=== PATIENT | female | born 1985 | race Two or more races ===

== ENCOUNTER 2019-01-12 13:41 | Day surgery (SDC) | payer SELFPAY ==
[2019-01-06 11:08] VITALS: BMI 23.8
[~2019-01-12 13:41] MED LIST: ACETAMINOPHEN 325 MG TABLET (FP) PO PRN; BACITRACIN 15 GM TUBE TOPICAL OINTMENT ONE; BUPIVACAINE HCL/PF 2.5 MG/ML - 30 ML VIAL IJ ONE; DEXAMETHASONE SOD PHOSPHATE 4 MG/1 ML VIAL ONE; EPINEPHrine/PF 1 MG/1 ML (1:1,000) AMPULE ONE; GLYCOPYRROLATE 0.2 MG/1 ML VIAL ONE; HALOPERIDOL LACTATE 5 MG/ML ONE; HEPARIN NA (PORCINE) 5,000 UNITS/ML 1ML VIAL ONE; LIDOCAINE 1%/EPI 1:100000 (20 ML MULTI DOSE VIAL) ONE; LIDOCAINE HCL 1% PRESERVATIVE FREE - 30ML VIAL ONE; LIDOCAINE HCL 2% JELLY (5 ML/TUBE) ONE; LIDOCAINE HCL/PF 2% SDV 5ML VIAL ONE; MIDAZOLAM HCL 2 MG/2 ML SINGLE DOSE VIAL ONE; NEOSTIGMINE METHYLSULFATE 0.5 MG/ML - 10 ML MDV ONE; ONDANSETRON 4 MG/2 ML VIAL IVPUSH PRN; ONDANSETRON 4 MG/2 ML VIAL ONE; PROMETHAZINE HCL 25 MG/1 ML VIAL IVPB PRN; PROPOFOL 20 ML ONE; ROCURONIUM BROMIDE 50 MG/5 ML SYRINGE ONE; SCOPOLAMINE HYDROBROMIDE 1 PATCH PATCH.TD72 ONE; SUCCINYLCHOLINE CHLORIDE 200 MG/10 ML SYRINGE ONE; ZOLPIDEM TARTRATE 5 MG TABLET PO PRN; ceFAZolin SODIUM 1 GM VIAL ONE; ePHEDrine SULFATE 50 MG/1 ML AMPULE ONE; fentaNYL CITRATE 250 MCG/5 ML VIAL ONE
[2019-01-12] MEDS: LACTATED RINGERS SOLUTION 1,000 ML IV SCH (14:39)
[2019-01-12] MEDS ORDERED: CEFAZOLIN 1 GM/D5W 1 GM/50 ML BAG IVPB SCH (15:00)
[2019-01-12] MEDS: oxyCODONE HCL 5 MG TABLET PO PRN (15:30)
[2019-01-12] MEDS: DOXYCYCLINE HYCLATE 100 MG CAPSULE PO SCH (18:33)
[2019-01-12] MEDS: CEFAZOLIN 1 GM/D5W 1 GM/50 ML BAG IVPB SCH (18:37)
[2019-01-12] MEDS ORDERED: ENOXAPARIN NA (PORCINE) 40 MG/0.4 ML DISP.SYRIN SQ ONE (22:00)
[2019-01-13] MEDS: CEFAZOLIN 1 GM/D5W 1 GM/50 ML BAG IVPB SCH ×3 (00:49→11:52)
[2019-01-13] MEDS: oxyCODONE HCL 5 MG TABLET PO PRN ×3 (04:30→12:27)
[2019-01-13 09:34] VITALS: TEMP 98.1
[2019-01-13] MEDS: DOXYCYCLINE HYCLATE 100 MG CAPSULE PO SCH (09:34)
[2019-01-13] MEDS: LACTATED RINGERS SOLUTION 1,000 ML IV SCH (13:11)
[2019-01-13 15:15] VITALS: BP 105/55; PULSE 68
--- NOTE | 2019-01-18 13:18 | PATH ---
Surgical Pathology Report Patient Name: DIANA MINA Med. Rec. #: [id number] /Age/Gender: 1985 (Age: 33) / F Account: <[id number]> Location: COUNT INCLUDES [facility] Taken: 01/12/2019 Received: 01/12/2019 Reported: 01/18/2019 Physicians: Krissy Portillo M.D. Specimen(s) Received A: RIGHT ABDOMEN B: LEFT ABDOMEN Clinical History Desires cosmesis Final Diagnosis A.ABDOMEN, RIGHT, ABDOMINOPLASTY: SKIN AND ADIPOSE TISSUE, DESCRIBED (GROSS EXAMINATION ONLY). B. ABDOMEN, LEFT, ABDOMINOPLASTY: SKIN AND ADIPOSE TISSUE, DESCRIBED (GROSS EXAMINATION ONLY). Electronically Signed Mayra Abraham M.D. Gross Description A. Received in formalin labeled "right abdomen," is a 1.098 pound, 18.0 x 14.5 x 2.8 cm unoriented portion of soft tissue which is surfaced by muhammad, unremarkable skin. Sectioning reveals homogeneous yellow, lobulated adipose tissue. No lesions are identified. No sections are submitted, gross only. B. Received in formalin labeled "left abdomen," is a 0.95 pound, 15.5 x 13.0 x 3.0 cm unoriented portion of soft tissue which is surfaced by muhammad, unremarkable skin. Sectioning reveals homogeneous yellow, lobulated adipose tissue. No lesions are identified. No sections are submitted, gross only. 01/13/201901/13/2019
== END 2019-01-13 14:42 | disposition home or self-care (01) ==
LOC: FASUSAT 13:41 → FM/S 13:41 → FASUSAT 01-13 14:42
PROVIDERS: ATTEND Surgery
PROC: 0J080ZZ Alteration of Abdomen Subcutaneous Tissue and Fascia, Open Approach (ICD-10-PCS; principal; 2019-01-12 08:00)
PROC: 0J083ZZ Alteration of Abdomen Subcutaneous Tissue and Fascia, Percutaneous Approach (ICD-10-PCS; 2019-01-12 08:00)
DX: Z41.1 Encounter for cosmetic surgery (principal)
CPT/HCPCS: 81025; 88300-TC; 94760; J1644